=== PATIENT | female | born 1980 | race Caucasian/White ===

== ENCOUNTER 2022-01-02 15:27 | Outpatient (CLI) | payer SELFPAY ==
[2022-01-03 08:53] LABS: Chloride* 104 mmol/L (96-114); Sodium* 138 mmol/L (135-149)
[2022-01-03 08:56] LABS: Blood Urea Nitrogen* 7 mg/dL (5-24); Carbon Dioxide* 29 mmol/L (20-32); Cholesterol* 149 mg/dL (90-199); Creatinine* 0.5 mg/dL (0.5-1.5); Estimated Glomerular Filt Rate 122 ml/min; Glucose* 88 mg/dL (60-115); Triglycerides* 172 mg/dL (40-149)
[2022-01-03 08:57] LABS: Calcium* 8.9 mg/dL (8.4-10.6); HDL Cholesterol* 63 mg/dL (>=50); LDL Cholesterol Calculated 52 mg/dL (<100)
== END 2022-01-02 15:28 | disposition home or self-care (01) ==
PROVIDERS: PCP Family Medicine; Visit Provider Family Medicine
DX: Z01.419 Encounter for gynecological examination (general) (routine) without abnormal findings (principal); N92.0 Excessive and frequent menstruation with regular cycle; Z13.6 Encounter for screening for cardiovascular disorders
CPT/HCPCS: 80048; 80061